=== PATIENT | female | born 1995 | race Caucasian/White ===

== ENCOUNTER 2017-07-17 00:56 | Inpatient (IN) ==
[2017-07-17] MEDS ORDERED: ACETAMINOPHEN 500 MG TABLET PO PRN (01:09)
[2017-07-17] MEDS ORDERED: LIDOCAINE 1% (10mg/ml) 2mL INJ PF SDV ID PRN (01:09)
[2017-07-17] MEDS ORDERED: METHYLERGONOVINE 0.2 MG/ML INJECTION IM PRN (01:09)
[2017-07-17] MEDS ORDERED: CALCIUM CARBONATE Chewable 500mg TABLET PO PRN (01:09)
[2017-07-17] MEDS ORDERED: CARBOPROST 250 MCG/ML INJECTION IM PRN (01:09)
[2017-07-17] MEDS ORDERED: LR 1,000 ML IV PRN (01:09)
[2017-07-17] MEDS ORDERED: MAG-AL + SIM ORAL LIQUID 30ml PO PRN (01:09)
[2017-07-17] MEDS ORDERED: MORPHINE SULFATE 2 MG SYRINGE IVP ONE (01:44)
[2017-07-17] MEDS ORDERED: HYDROCORTISONE 2.5% CREAM 30gm RECTALLY PRN (03:23)
[2017-07-17] MEDS ORDERED: DiphenhydrAMINE 25 MG CAPSULE PO PRN (03:23)
[2017-07-17] MEDS ORDERED: OXYTOCIN DRIP 30 UNIT/500 ML ML IV SCH (03:23)
[2017-07-17 03:42] VITALS: BMI 27.1
[2017-07-17] MEDS: IBUPROFEN 800 MG TABLET PO PRN ×3 (03:53→19:50)
[2017-07-17] MEDS: HYDROCODONE/APAP 5mg/325mg TABLET PO PRN ×5 (05:39→19:51)
[2017-07-17] MEDS: SALINE FLUSH 10ml SYRINGE IVF PRN (05:42)
[2017-07-17] MEDS: DOCUSATE CALCIUM 240 MG CAPSULE PO SCH ×2 (06:28→11:51)
--- NOTE | 2017-07-17 10:12 | Labor and Delivery Note ---
DATE OF DELIVERY: 07/17/2017 DELIVERY NOTE Bernarda is a 21-year-old 1 at 40 weeks 5 days gestational age who presented to [facility] with complaints of contractions. She was found to be completely dilated with a bulging bag at the introitus. I was called in stat. On my arrival her membranes were ruptured, returning meconium-stained fluid. She pushed for a short period of time and had a spontaneous vaginal delivery in the REJI position of a viable female , Apgars 8/9, weight 3180 g. The baby's name hasn't been decided yet. She was vigorous at delivery, so baby was placed on mom's abdomen and the cord clamping was delayed for approximately 5 minutes. The placenta delivered spontaneously. She had a right vaginal laceration at the 11 o'clock position that went all the way through her right labia. This was repaired with 2-0 chromic after being injected with local. She also had a smaller left first-degree perineal laceration that I did not repair due to discomfort from the delivery. Mom and baby tolerated the delivery well. SUKHJINDER
--- NOTE | 2017-07-17 13:57 | Pharmacy Consult ---
Pharmacy Consult-Rhophylac - Laboratory Information 07/17/17 07/17/17 07/17/17 01:20 02:00 08:42 Hgb /Adult Ratio 0.0000 Blood Type O Negative RhIG Candidate? Is a candidate - Consult Information Rh FACTOR CONSULT: Mother Blood Type = O NEGATIVE Child Blood Type = A POSITIVE Hgb / Adult Ratio = 0.0000 Will give Rho D Immunglobulin 300mcg IV x 1 dose. Thank you.
[2017-07-17] MEDS ORDERED: RHO(D) IMMUNE GLOBULIN 300 MCG/2 ML INJECTION IVP ONE (15:00)
[2017-07-17 18:42] VITALS: RESP 18
[2017-07-18] MEDS: SALINE FLUSH 10ml SYRINGE IVF PRN (03:46)
[2017-07-18] MEDS: IBUPROFEN 800 MG TABLET PO PRN ×2 (03:46→13:29)
[2017-07-18] MEDS: HYDROCODONE/APAP 5mg/325mg TABLET PO PRN ×3 (03:47→13:30)
[2017-07-18 04:13] VITALS: O2SAT 98
--- NOTE | 2017-07-18 08:07 | OB/GYN Progress Note ---
OB-Progress Note Free Text - Date Date: 07/18/17 - Progress Note Progress Note: Late entry Pt seen last night at 5pm No c/o at that time vss af disc her labor and delivery. q&a-krb
--- NOTE | 2017-07-18 08:07 | OB/GYN Progress Note ---
OB-PP Progress Note - General PPD1 - Subjective Date: 07/18/17 Lochia: Moderate Pain: contolled Voiding: voiding Nausea or Vomiting Present: No - Objective Vital Signs: Last Vital Signs Temp 97.9 F 07/18/17 04:13 Pulse 85 07/18/17 04:13 Resp 18 07/18/17 04:13 BP 135/82 07/18/17 04:13 Pulse Ox 98 07/18/17 04:13 Urine Output: good General: alert and oriented Abdomen: fundus firm Extremities: non-tender Edema: none Laboratory: Laboratory Results - last 24 hr 07/17/17 07/17/17 08:42 08:42 WBC 22.4 H RBC 4.06 Hgb 12.3 D Hct 36.6 D MCV 90.1 MCH 30.3 MCHC 33.6 RDW Std Deviation 44.1 Plt Count 217 MPV 11.6 Hgb /Adult Ratio 0.0000 - Assessment Assessment: - Plan Plan: discharge home
--- NOTE | 2017-07-18 08:11 | Discharge Instructions ---
Discharge Plan - Med Rec/Dispo Prescriptions: New Hydrocodone/APAP 5/325 [[place] 5/325] 1 - 2 tab PO Q4H PRN #15 tablet PRN Reason: Pain Continue Vitamins Discharge Instructions/Outpatient Orders: Final Provider Discharge Instructions Location: Determined By Patient - Disposition 01 Discharged Home, Self-Care
[2017-07-18] MEDS: DOCUSATE CALCIUM 240 MG CAPSULE PO SCH (09:12)
[2017-07-18 14:19] VITALS: BP 138/79; PULSE 109; TEMP 979.7
== END 2017-07-18 16:00 | disposition home or self-care (01) | DRG 775 ==
LOC: OBOBS 00:56 → MC 00:57
PROVIDERS: ADMIT Obstetrics & Gynecology; ATTEND Obstetrics & Gynecology